=== PATIENT | female | born 1940 | race Caucasian/White ===

== ENCOUNTER 2017-02-09 15:08 | Emergency (ER) | payer MEDICARE, OTHER ==
[~2017-02-09] VITALS: Ht 167.6 cm; Wt 80.9 kg
[~2017-02-09 15:08] MED LIST: ACYC5CRE2 TP; ALBU8.5H4 IH; ASPI-1012 PO; BIOT300T2 PO; FLUT16SP2 NS; MULT-36 PO; NIFE30TA92 PO; OMEP40CA36 PO
[2017-02-09 15:11] VITALS: BP 146/88; PULSE 71; RESP 14; O2SAT 99
--- NOTE | 2017-02-09 16:09 | ED.REPORT ---
HPI-Trauma Minor / Fall Date of Service Feb 09, 2017 ED Provider: Stevo Jensen DO 76 year old female presents to the ER complaining of head injury status post striking her head on a garage door just prior to arrival. She states that she struck her head when she was attempting to duck under her garage door as it was opening, knocking her backwards onto the ground. Associated symptoms include brief LOC, and nausea following the incident. Patient denies any other injuries secondary to the fall. Nursing Notes Stated Complaint: HEAD INJURY Chief Complaint: Multiple Trauma/Fall Nursing Notes Reviewed: Yes Allergies: Coded Allergies: No Known Allergies (Unverified Allergy, Unknown, 02/09/17) Scheduled Aspirin-Expunged Drug, Do Not Renew! (Ecotrin-Expunged Drug, Do Not Renew!) 81 Mg Tabec 81 MG PO DAILY Biotin (Biotin) 300 Mcg Tablet 300 MCG PO DAILY Fluticasone Propionate (Flonase Nasal) 16 Gm Lamont.susp 1 SPRAY NS DAILY Multivitamin (Daily Multiple Vitamin) 1 Each Tablet 1 EACH PO DAILY Nifedipine ER (Adalat CC) 30 Mg Tabcr 30 MG PO DAILY Omeprazole (Omeprazole) 40 Mg Capsule.dr 40 MG PO AM Scheduled PRN Acyclovir (Zovirax) 5 Gm Cream..g. 5 GM TP 6xday PRN PRN coldsores Albuterol HFA (Albuterol HFA) 8.5 Gm Hfa.aer.ad 2 PUFF IH Q4-6H PRN PRN For Shortness of Breath General Time Seen by MD: 16:08 Chief Complaint Head injury Hx Obtained From: Patient Arrived By: Walk-in Onset Occurred: 1 - 4 hours ago Symptom Duration: Since onset Caused by: Accidental Context: Occurred at: Home injury Location: Head Quality: Painful Severity: Current: Moderate Severity: Maximum: Moderate Pertinent Negative: Pt denies other symptoms Similar Sx Previous: No Past Medical History Past Medical History Reports: Asthma, Hypertension Past Surgical History Reports: (x3) Smoking History Former Smoker Social History Alcohol Use: "Social" (occasional wine) Ambulatory Status Independent Review of Systems Musculoskeletal: Denies: Back pain, Extremity pain, Joint pain, Lumbar pain, Neck pain, Thoracic pain Neurologic: Reports: Headache, Syncope Complete sys rev & neg: except as marked. GI: Reports: Nausea, Denies: Vomiting Physical Exam Initial Vital Signs Vital Signs (First) Date Time Temp Pulse Resp B/P Pulse Ox O2 Delivery O2 Flow Rate FiO2 02/09/17 15:11 35.8 71 14 146/88 99 Room Air Initial VS: Reviewed Abdomen / GI: Soft, Non-tender, No guarding, No rebound, No distention Extremities: Vascular intact, Neuro intact, No swelling, No tenderness Skin: Warm, Dry, No cyanosis Neurologic: Alert, Oriented, Nonfocal Psychiatric: Mood/affect normal, Behavior normal, Normal thought content General/Constitutional: Awake, Alert, No acute distress, Well appearing, Well developed, Well hydrated, Well nourished, Cooperative Neck: Atraumatic, Supple, Full range of motion, No swelling, Non-tender, No midline vertebral tend Head / Eyes: Normocephalic, PERRL 2cm miniscule hematoma on the top of the scalp. Respiratory / Chest: Breath sounds NL, Breath sounds = bilat, No respiratory distress, No rales, No rhonchi, No wheezing, No chest tenderness, No chest wall deformity, No crepitus Cardiovascular: Heart rate NL, Regular rhythm, Heart sounds NL, Cap refill not delayed, Peripheral circulation NL Interpretation & Diagnostics CT Head Interpretation IMPRESSION: Negative CT of the head. No acute intracranial hemorrhage. Dictated by: Murphy Soto M.D. on 02/09/2017 at 15:58 Approved by: Murphy Soto M.D. on 02/09/2017 at 16:00 Study: Head CT no contrast Interpretation / Wet Read by: Interpret - Radiologist Re-Eval/Medical Decision Med Decision/Clinical Course Isolated mechanical head injury related to hitting a garage door while it was closing. I will suspect any life-threatening pathology head CT negative. Able for discharge. Return in follow-up percussions given. Source of Hx: Old records Re-Evaluation/Progress : Time of Eval: 17:23 Re-Evaluation/Progress Note: Discussed CT results and plan to discharge. Patient is amenable to the plan. Return precautions given. All other questions addressed. Counseled Regarding: Diagnosis, Need for follow-up, When/why to return to ED Discharge & Departure Impression: Primary Impression: Head injury Disposition: Home Discharge Condition All VS Reviewed: Yes Condition: Stable Patient Instructions: Fall Prevention for Older Adults (GEN) Additional Instructions: Your head CT is normal. Take it easy when running under garage doors. Return to the ER follow up with your doctor as needed. Referrals: Christi Shirley (PCP) Gold Attestation Portions of this note were transcribed by Josh Hair. I, Dr. Jensen, personally performed the history, physical exam and medical decision-making; I reviewed and confirmed the accuracy of the information in the transcribed note. Signed by: Gold Trejo, 02/09/2017 and 17:23 copies to: Christi Shirley Timothy S DO Feb 09, 2017 16:09 JOSH HAIR Feb 09, 2017 16:12
--- NOTE | 2017-02-09 17:01 | DRSVH ---
PROCEDURE: CT BRAIN WITHOUT CONTRAST ([id number]) INDICATIONS: head injury, LOC TECHNIQUE: Noncontrast 4.5 mm thick angled axial sections acquired from the foramen magnum to the vertex, with c oronal reformats. COMPARISON: None. FINDINGS: Image quality: Diagnostic. Brain: There is no acute intra-axial or extra-axial hemorrhage. No extra-axial fluid collection is i dentified. There is no midline shift or mass effect. The orbits are grossly unremarkable. No large areas of diffusely decreased attenuation are evident within the brain to suggest diffuse cer ebral edema. No focal parenchymal abnormality is identified. The ventricles and cortical sulci are age-appropriate. Bones: Calvarium and visualized facial bones are grossly intact. The imaged paranasal sinuses and m astoid air cells are clear. IMPRESSION: Negative CT of the head. No acute intracranial hemorrhage. Dictated by: Murphy Soto M.D. on 02/09/2017 at 15:58 Approved by: Murphy Soto M.D. on 02/09/2017 at 16:00
[2017-02-09 17:22] VITALS: BP 137/64; PULSE 72; RESP 18; O2SAT 97
== END 2017-02-09 17:23 | disposition home or self-care (01) ==
LOC: SED 15:08
DX: S09.90XA Unspecified injury of head, initial encounter (principal); W22.8XXA Striking against or struck by other objects, initial encounter; Y93.89 Activity, other specified; Y92.008 Other place in unspecified non-institutional (private) residence as the place of occurrence of the external cause; Y99.8 Other external cause status; J45.909 Unspecified asthma, uncomplicated; I10 Essential (primary) hypertension; Z79.82 Long term (current) use of aspirin; Z87.891 Personal history of nicotine dependence